=== PATIENT | female | born 1955 | race Two or more races ===

== ENCOUNTER 2024-04-05 09:49 | Emergency (ER) | payer OTHER ==
[~2024-04-05] VITALS: Ht 157.5 cm; Wt 45.4 kg
[2024-04-05] MEDS ORDERED: ROSUVASTATIN CAL5 MG (10:16)
[2024-04-05 11:10] LABS: HEMATOCRIT 42.2 % (36.0-45.00); HEMOGLOBIN 14.5 g/dL (12.0-15.00); MEAN CELL VOLUME 98.8 fL (80.00-100.00); MEAN CORPUSCULAR HEMOGLOBIN 33.9 pg (27.00-32.0); MEAN CORPUSCULAR HGB CONC 34.3 g/dl (32.0-36.0); PLATELET COUNT 253 K/uL (150-450); RED BLOOD COUNT 4.27 M/uL (4.00-6.00); RED CELL DISTRIBUTION WIDTH 13.8 % (11.5-14.5)
[2024-04-05] MEDS ORDERED: BENZONATATE200 M1 PO (11:47)
[2024-04-05] MEDS ORDERED: OSEL75CA PO (11:47)
[2024-04-05] MEDS ORDERED: LEVALBUTER0.63 MG/3 IH (11:47)
== END 2024-04-05 12:20 | disposition home or self-care (01) ==
LOC: ER 09:51
PROVIDERS: General Practice
DX: R53.81 Other malaise (principal); J00 Acute nasopharyngitis [common cold]; Z20.822 Contact with and (suspected) exposure to COVID-19

== ENCOUNTER → 2025-03-23 | Emergency (ER) | payer BC ==
[~2025-03-23] VITALS: Ht 154.9 cm; Wt 51.3 kg
[~2025-03-23] MED LIST: ACETAMINOPHEN 500 MG GEL..CAP PO ONE; BENZONATATE200 M1 PO; DEXAMETHASONE SODIUM PHOSPHATE 4 MG/ML VIAL IV ONE; KETOROLAC TROMETHAMINE 60 MG VIAL IM ONE; LEVALBUTER0.63 MG/3 IH; ORPHENADRINE CITRATE 30 MG/ML AMPUL IM ONE; OSEL75CA PO; ROSUVASTATIN CAL5 MG; TRAMADOL HCL 50 MG TABLET PO ONE
[2025-03-23 12:12] LABS: BASO % 0.6 % (0.1-1.2); EOS # 0.19 (0.04-0.54); EOS % 2.2 % (0.7-7.0); LYMPH # 2.67 (1.18-3.74); LYMPH % 31.0 % (19.3-53.1); MEAN PLATELET VOLUME 8.60 fl (9.4-12.4); MONO # 0.63 (0.24-0.82); MONO % 7.3 % (4.7-12.5); NEUT # 5.06 (1.56-6.13); NEUT % 58.7 % (34.0-71.1); RED CELL DISTRIBUTION WIDTH 13.2 % (11.6-14.4)
[2025-03-23 12:14] LABS: URINE APPEARANCE Clear; URINE BILIRRUBIN Negative (NEGATIVE); URINE BLOOD Trace; URINE COLOR Yellow; URINE GLUCOSE Negative (NEGATIVE); URINE KETONE Negative (NEGATIVE); URINE LEUKOCYTE Negative; URINE NITRATE Negative; URINE PROTEIN Negative (NEGATIVE); URINE UROBILINOGEN 0.2 E.U./dl
[2025-03-23 12:18] LABS: URINE BACTERIA 29.9 uL (0.0-1933); URINE EPITHELIAL CELLS 63.9 uL (0.0-38.8); URINE RBC 4.2 uL (0.0-20.8); URINE WBC 1.9 uL (0.0-23.2)
[2025-03-23 12:38] LABS: URINE CAST 0.29 uL (0.0-1.40)
[2025-03-23 12:55] LABS: INR 1.02
[2025-03-23 13:03] LABS: ALT/SGPT 36.0 U/L (12-78); AST/SGOT 27.0 U/L (15-37); BILIRUBIN TOTAL 0.72 mg/dL (0.3-1.2); BUN CREA RATIO 25.0 (7.0-25.0); CREATININE SERUM 0.61 mg/dL (0.55-1.02); GFR 96.41; GLOBULINA 4.0 G/DL (2.4-3.5); GLUCOSE FASTING 86.0 mg/dL (65-100); OSMOLALITY SERUM 280.0 MOSM/KG (275-295)
== END | disposition left against medical advice (07) ==
LOC: ER 08:47
PROVIDERS: General Practice
DX: M54.89 Other dorsalgia (principal); W18.39XA Other fall on same level, initial encounter; Y93.89 Activity, other specified; Y92.89 Other specified places as the place of occurrence of the external cause; J84.89 Other specified interstitial pulmonary diseases; E78.49 Other hyperlipidemia